=== PATIENT | female | born 1990 | race Caucasian/White ===

== ENCOUNTER 2022-01-24 22:12 | Emergency (ER) | payer BC, SELFPAY ==
[2022-01-24 22:18] VITALS: BP 125/73; PULSE 80; O2SAT 96
[2022-01-24 22:24] VITALS: BP 134/84; PULSE 81; RESP 19; TEMP 36.5; O2SAT 98; BMI 27.3
--- NOTE | 2022-01-24 22:36 | XR_ITS ---
PROCEDURE INFORMATION: Exam: XR Right Shoulder Exam date and time: 01/24/2022 11:21 PM Age: 32 years old Clinical indication: Injury or trauma; Other: Hurt shoulder throwing softball; Sprain or strain; Right; Additional info: Strain from softball TECHNIQUE: Imaging protocol: XR Right shoulder. Views: 2 or more views. COMPARISON: No relevant prior studies available. FINDINGS: Bones/joints: No acute fracture or dislocation. Normal bone mineralization. Acromioclavicular joint is normal. Glenohumeral joint is normal. Included ribs are unremarkable. Soft tissues: No soft tissue swelling or radiopaque foreign body. IMPRESSION: No acute findings.
--- NOTE | 2022-01-24 23:18 | HMH.EDGENADL ---
ED Disposition Clinical Impression: Shoulder tendinitis Qualifiers: Laterality: right Qualified Code(s): M77.8 - Other enthesopathies, not elsewhere classified Disposition: Home, Self-Care Condition on Discharge: Good Instructions: DI for Shoulder Pain Additional Instructions: use meds and see pcp and ortho for follow up Prescriptions: predniSONE [Prednisone 20mg Tab] 20 mg PO BID #10 tab Transmission Status: Pending to [facility] [id number] Referrals: Provider,MD James [Primary Care Provider] - Narinder Vital JR, MD [Physician] - - Critical Care Critical Care Time: No Attestation: On 01/24/22, the high probability of a clinically significant, sudden or life threatening deterioration of the following system(s) required my full and direct attention, intervention and personal management. The time I documented below is in addition to time spent performing reported procedures but includes the following listed in this critical care notation. Medical Decision Making - Medical Records Medical records reviewed: Yes: I reviewed the patient's medical records. - Landon Inquiry Pt receiving controlled substance: No Vital Signs: 01/24/22 22:18 01/24/22 22:24 Temperature 97.7 F Temperature Source Oral Pulse Rate 80 Pulse Rate [Right Brachial] 81 Respiratory Rate 19 Blood Pressure 125/73 Blood Pressure [Right Arm] 134/84 Blood Pressure Mean [Right Arm] 100 Blood Pressure Source [Right Arm] Automatic Cuff Blood Pressure Position [Right Arm] Sitting 02 Sat by Pulse Oximetry 96 98 Oxygen Delivery Method Room Air Room Air Orders (Tests/Meds): ORDERS Category Date Time Status XR shoulder RT min 2V Stat Exams 01/24/22 22:36 Taken - Radiology Data #1 Image(s): Shoulder Image Reviewed: Yes I reviewed the patient's radiology image Preliminary Findings: No Fracture Seen Medical Decision Narrative: will treat as tendonitis at this time - will need ortho eval and possible mri General Adult HPI - General Chief complaint: PAIN Stated complaint: rt shoulder pain no accident Time Seen by Provider: 01/24/22 22:25 Mode of Arrival: Family Vehicle Source of Information: Patient, Medical Record Limitations: No Limitations Description of Symptoms (Recalled from ER Triage Doc. by RN): pt presents with right shoulder pain; states she has been playing softball and possibly strained it from throwing from the outfield. pt denies any specific injury, just difficulty with rotation and ROM. - History of Present Illness HPI narrative: pain rt shoulder worse last 2 days -worse with certain movements - no trauma - Onset (ago): day(s) Location: upper extremity Severity: moderate Quality: aching Consistency: intermittent Associated symptoms: denies other symptoms Treatments prior to arrival: none - Related Data Previous Rx's Medication Instructions Recorded predniSONE [Prednisone 20mg 20 mg PO BID #10 tab 01/24/22 Tab] Allergies Allergy/AdvReac Type Severity Reaction Status Date / Time No Known Allergies Allergy Verified 01/24/22 22:35 [facility] History - Hepatitis A Screen Attestation statement:: This patient has been screened for Hepatitis A risk factors. I have reviewed the patient's past medical history: Yes ROS Obtained: Yes All systems reviewed & no additional complaints - Constitutional Constitutional: Denies fever(s) - Eyes Eyes: Denies change in vision - ENT Ears, Nose, Mouth, and Throat: Denies sore throat - Cardiovascular Cardiovascular: Denies chest pain - Respiratory Respiratory: Denies shortness of breath - Gastrointestinal Gastrointestingal: Denies: abdominal pain - Genitourinary Female Genitourinary: Denies hematuria - Musculoskeletal Musculoskeletal: Reports as per HPI, Reports joint pain, Denies joint swelling, Reports limited range of motion - Integumentary/Breasts Skin/Breast: Denies rash - Neurologic Neurolo
--- NOTE | 2022-01-24 23:30 | PC.NURSE ---
pt to xray at this time
[2022-01-24 23:42] VITALS: BP 125/70; PULSE 76; RESP 19; TEMP 36.8; O2SAT 98
== END 2022-01-25 00:01 | disposition home or self-care (01) ==
PROVIDERS: Emergency Provider Emergency Medicine
DX: M25.511 Pain in right shoulder (principal); M77.8 Other enthesopathies, not elsewhere classified; X50.9XXA Other and unspecified overexertion or strenuous movements or postures, initial encounter; Y92.89 Other specified places as the place of occurrence of the external cause
CPT/HCPCS: 73030; 99283

== ENCOUNTER 2022-04-17 11:20 | Emergency (ER) | payer BC, SELFPAY ==
[2022-04-17 12:49] VITALS: BP 115/49; PULSE 64; RESP 17; TEMP 37; O2SAT 99; BMI 27.3
[2022-04-17 12:49] LABS: UTC Strep Screen (Rapid) Negative (Negative)
--- NOTE | 2022-04-17 12:51 | EXP.UTC ---
Discharge Plan Disposition Patient Disposition: Home, Self-Care Condition: Good Prescriptions Prescriptions: New ifsoxoljqxgvcrz-dwvqirfzw-PA [Bromfed DM] 2-30-10 mg/5 mL Syrup 5 - 10 ml PO Q4H PRN (Reason: Cough) Qty: 240 0RF amoxicillin-pot clavulanate 875-125 mg Tablet 1 tab PO Q12H Qty: 20 0RF No Action prednisone 20 MG tablet 20 mg PO BID Qty: 10 0RF Referrals Follow up/Referrals: Provider,Referral, MD [Primary Care Provider] - See instructions Activity Restrictions/Add. Instructions Additional Instructions/Restrictions: Replace toothbrush. RTC if not improving. Clinical Impressions Clinical Impression: Acute tonsillitis Discharge ED Provider[place] Nisha [place] [facility] [place] General Stated complaint: sore throat Time Seen by Provider: 04/17/22 12:51 History of Present Illness Provider Complaint: Sore throat, runny nose, cough X 2 days. Exposed to strep. No fever. Related Data Previous Rx's Medication Instructions Recorded prednisone 20 mg tablet 20 mg PO BID #10 tabs 01/24/22 amoxicillin 875 mg-potassium 1 tab PO Q12H #20 tabs 04/17/22 clavulanate 125 mg tablet lezacvdyoxywrfm-yubzorioxrmqsav-WM 5 - 10 ml PO Q4H PRN Cough #240 mL 04/17/22 2 mg-30 mg-10 mg/5 mL oral syrup (Bromfed DM) Allergies Allergy/AdvReac Type Severity Reaction Status Date / Time No Known Allergies Allergy Verified 04/17/22 12:51 [facility] Social History Smoking Status: Current every day smoker alcohol intake: never current occupational status: employed ROS Obtained: Yes All systems reviewed & no additional complaints except as documented ENT Ears, Nose, Mouth, and Throat: Reports nasal congestion and Reports sore throat Physical Exam General General appearance: alert and in no apparent distress Head Head exam: atraumatic, normocephalic and normal inspection Eye Eye exam: Present normal appearance, PERRL and EOMI ENT ENT exam: Present normal exam, mucous membranes moist, TM's normal bilaterally and normal external ear exam Expanded ENT Exam Throat exam: Present tonsillar erythema and tonsillomegaly Neck Neck exam: Present normal inspection, full ROM and trachea midline; Absent meningismus or lymphadenopathy Chest Chest inspection: Present normal inspection and symmetric chest wall rise; Absent tenderness Respiratory Respiratory exam: Present normal lung sounds bilaterally; Absent respiratory distress Cardiovascular Cardiovascular exam: Present regular rate and normal rhythm; Absent JVD Abdominal Exam Abdominal exam: Present soft and normal bowel sounds; Absent distention, tenderness or guarding Extremities Exam Extremities exam: Present normal inspection, full ROM and normal capillary refill; Absent calf tenderness Back Exam Back exam: Present normal inspection; Absent tenderness Neurological Exam Neurological exam: Present alert and oriented X3 Psychiatric Psychiatric exam: Present normal affect and normal mood Skin Skin exam: Present warm, dry, intact and normal color Lymphatic Lymphatic Findings: no adenopathy Medical Decision Making Landon Inquiry Pt receiving controlled substance: No Lab Data Lab results reviewed: Yes I reviewed the patient's lab results. Lab Results 04/17/22 12:42: Strep Scn Rapid Clinic Negative Orders (Tests/Meds): ORDERS Category Date Time Status Covid-19 Nasal PCR (H) Routine Lab 04/17/22 12:25 Received Strep Screen Confirmation Stat Micro 04/17/22 12:42 Received
[2022-04-17 13:18] VITALS: BP 115/49; PULSE 64; RESP 17; TEMP 37
== END 2022-04-17 13:21 | disposition home or self-care (01) ==
PROVIDERS: Emergency Provider Physician Assistant
DX: J03.90 Acute tonsillitis, unspecified (principal)
CPT/HCPCS: 87880; 99212; C9803; G0463; U0003; U0005

== ENCOUNTER 2022-05-20 09:54 | Emergency (ER) | payer BC, SELFPAY ==
[2022-05-20 10:15] VITALS: BP 137/76; PULSE 67; RESP 18; TEMP 36.8; O2SAT 99; BMI 27.3
[2022-05-20 10:22] LABS: Adenovirus,PCR Not Detected (NotDetected); Bordetella Pertussis Not Detected (NotDetected); Chlamydophila Pneumoniae, PCR Not Detected (NotDetected); Coronavirus 229E Not Detected (NotDetected); Coronavirus NL63 Not Detected (NotDetected); Coronavirus OC43 Not Detected (NotDetected); Coronovirus HKU1,PCR Not Detected (NotDetected); Human Metapneumovirus Not Detected (NotDetected); Influenza A, PCR Not Detected (NotDetected); Influenza AH1, 2009 Not Detected (NotDetected); Influenza AH1, PCR Not Detected (NotDetected); Influenza AH3,PCR Not Detected (NotDetected); Influenza B, PCR Not Detected (NotDetected); Mycoplasma Pneumoniae, PCR Not Detected (NotDetected); Parainfluenza 1, PCR Not Detected (NotDetected); Parainfluenza 2, PCR Not Detected (NotDetected); Parainfluenza 3, PCR Not Detected (NotDetected); Parainfluenza 4, PCR Not Detected (NotDetected); Respiratory Syncytial Virus Not Detected (NotDetected); Rhinovirus/Enterovirus Not Detected (NotDetected)
[2022-05-20 10:24] LABS: UTC Strep Screen (Rapid) Negative (Negative)
--- NOTE | 2022-05-20 10:25 | EXP.UTC ---
Discharge Plan Disposition Patient Disposition: Home, Self-Care Condition: Good Prescriptions Prescriptions: New benzonatate [benzonatate] 100 mg capsule 100 mg PO TIDP PRN (Reason: Cough) Qty: 30 0RF ondansetron 4 mg Tablet,Disintegrating 4 mg PO Q8H PRN (Reason: Nausea) Qty: 20 0RF No Action prednisone 20 MG tablet 20 mg PO BID Qty: 10 0RF tojjebdmmpcashf-ezlatiwcv-GD [Bromfed DM] 2-30-10 mg/5 mL Syrup 5 - 10 ml PO Q4H PRN (Reason: Cough) Qty: 240 0RF amoxicillin-pot clavulanate 875-125 mg Tablet 1 tab PO Q12H Qty: 20 0RF Referrals Follow up/Referrals: Provider,Referral, MD [Primary Care Provider] - See instructions Activity Restrictions/Add. Instructions Additional Instructions/Restrictions: Drink plenty of fluids. Take tylenol or ibuprofen for pain or fever. Take the medications as directed. Follow up with your regular doctor. GO TO THE ER FOR ANY WORSENING SYMPTOMS Quarantine until you know the results of your covid-19 test. Notify your school or workplace of your results and follow their instructions regarding return to work/school. Clinical Impressions Clinical Impression: Viral syndrome Stand Alone Forms Stand Alone Forms: Work/School Release Instructions Patient Instructions: DI for Viral Syndrome, Coronavirus Disease 2019, Preventing the Spread of Coronavirus Discharge Instructions Discharge ED Provider: Kwan Suarez [facility] [place] HPI General Stated complaint: sore throat, runny nose, cough Mode of Arrival: Ambulatory Time Seen by Provider: 05/20/22 10:24 Description of Symptoms (Recalled from Triage Doc. by RN): COUGH, RUNNY NOSE AND SORE THROAT HEENT Symptoms (Recalled from RN notes): Yes Resp Symptoms (Recalled from RN notes): Yes Skin Symptoms (Recalled from RN notes): No MS Symptoms (Recalled from RN notes): No Functional Status (Recalled from RN notes): NA History of Present Illness Provider Complaint: She c/o feeling bad, having body aches and chills since last night. Related Data Previous Rx's Medication Instructions Recorded prednisone 20 mg tablet 20 mg PO BID #10 tabs 01/24/22 amoxicillin 875 mg-potassium 1 tab PO Q12H #20 tabs 04/17/22 clavulanate 125 mg tablet ufmkwupjsyutpjl-fngznbqvszssozw-PO 5 - 10 ml PO Q4H PRN Cough #240 mL 04/17/22 2 mg-30 mg-10 mg/5 mL oral syrup (Bromfed DM) benzonatate 100 mg capsule 100 mg PO TIDP PRN Cough #30 caps 05/20/22 ondansetron 4 mg disintegrating 4 mg PO Q8H PRN Nausea #20 tabs 05/20/22 tablet Allergies Allergy/AdvReac Type Severity Reaction Status Date / Time No Known Allergies Allergy Verified 04/17/22 12:51 Worker's Comp Is this a Worker's Comp case?: No PFSH PFSH Social History (Updated 04/17/22 @ 13:09 by ISAIAH Berry) Smoking Status: Current every day smoker alcohol intake: never current occupational status: employed Travel in the last 8 weeks: None ROS Obtained: Yes All systems reviewed & no additional complaints except as documented Constitutional Constitutional: Reports chills and Reports fever(s) Eyes Eyes: Denies eye discharge ENT Ears, Nose, Mouth, and Throat: Reports as per HPI Cardiovascular Cardiovascular: Denies chest pain Respiratory Respiratory: Denies chest congestion and Reports cough Gastrointestinal Gastrointestingal: Reports nausea; Denies abdominal pain, constipation, cramping, diarrhea or vomiting Musculoskeletal Musculoskeletal: Denies arthralgias Integumentary/Breasts Skin/Breast: Denies rash Neurologic Neurologic: Denies paresthesias Physical Exam General General appearance: alert and in no apparent distress Head Head exam: atraumatic, normocephalic and normal inspection Eye Eye exam: Present normal appearance, PERRL and EOMI ENT ENT exam: Present normal exam, normal oropharynx, mucous membranes moist, TM's normal bilaterally and normal external ear exam Neck Neck exam: Present normal inspection, full ROM and trachea
[2022-05-20 11:00] VITALS: BP 137/76; PULSE 67; RESP 18; TEMP 36.8; O2SAT 99
[2022-05-20 11:50] LABS: Coronavirus 19, PCR Detected (NotDetected)
== END 2022-05-20 11:00 | disposition home or self-care (01) ==
PROVIDERS: Emergency Provider Nurse Practitioner Family
DX: U07.1 COVID-19 (principal)
CPT/HCPCS: 87581; 87632; 87798; 87880; 99212; C9803; G0463; U0003; U0005